=== PATIENT | female | born 1950 | race Caucasian/White ===

== ENCOUNTER 2022-03-06 10:00 | Inpatient (IN) ==
[~2022-03-06 10:00] MED LIST: Acetaminophen IV 1 GM/100ML 1,000 MG/100 ML BAG IV ONE; Buffered Lidocaine 1% SYRIN 1 ml INTRADERM ONE; Dexamethasone IV 4 MG/ML VIAL 1 ml VIAL ONE; Lactated Ringers 1000 ml BAG 1,000 ML IV SCH; Lidocaine 2% PF 5 ML VIAL ONE; Midazolam 2 mg/2 ml VIAL 1 mg/ml 2 ml VIAL (2 mg) ONE; Ondansetron 4 mg VIAL 2 MG/ML 2 ml VIAL ONE; Phenylephrine IV 10 MG/ML 1 ml VIAL ONE; fentaNYL 100 mcg/2 ml 50 MCG/ML VIAL ONE
[2022-03-06] MEDS ORDERED: Clindamycin 900 MG/D5W BAG 900 MG/50 ML BAG IVPB ONE (12:06)
[2022-03-06] MEDS ORDERED: ROPIVACAINE 5 MG/ML 30 ML BTL (0.5%) ONE ×2 (13:04→15:03)
[2022-03-06] MEDS ORDERED: Midazolam 2 mg/2 ml VIAL 1 mg/ml 2 ml VIAL (2 mg) ONE (13:04)
[2022-03-06] MEDS ORDERED: Rocuronium 50 mg VIAL 10 mg/ml 5 ml VIAL (50 mg) ONE (14:24)
[2022-03-06] MEDS ORDERED: Propofol 10 MG/ML 20 ML BTL ONE (14:24)
[2022-03-06] MEDS ORDERED: Naloxone 0.4 mg VIAL 0.4 mg/ml 1 ml VIAL IV PRN (14:26)
[2022-03-06] MEDS ORDERED: fentaNYL 100 mcg/2 ml 50 MCG/ML VIAL ONE (14:51)
[2022-03-06] MEDS ORDERED: Ondansetron ODT 4 mg TAB 4 MG TAB PO PRN (15:21)
[2022-03-06] MEDS ORDERED: Lactulose 30 ml UDC PO PRN (15:21)
[2022-03-06] MEDS ORDERED: Magnesium Hydroxide LIQ 30 ML UDC PO PRN (15:21)
[2022-03-06] MEDS ORDERED: HYDROmorphone 1 MG/1 ML SYRINGE IV SLOW PU PRN (15:28)
[2022-03-06] MEDS ORDERED: fentaNYL 250 mcg/5 ml 50 MCG/ML 5 ml VIAL (250 MCG) ONE (16:30)
[2022-03-06] MEDS ORDERED: HYDROmorphone 1 MG/1 ML SYRINGE ONE (17:20)
[2022-03-06] MEDS: HYDROmorphone 1 MG/1 ML SYRINGE IV PRN ×5 (17:24→18:18)
[2022-03-06] MEDS ORDERED: Ondansetron 4 mg VIAL 2 MG/ML 2 ml VIAL ONE (18:52)
[2022-03-06] MEDS ORDERED: Albuterol HFA INHALER 8 gm MDI INH PRN (18:59)
[2022-03-06] MEDS ORDERED: Warfarin per PHARMACY **NOTE FOLLOW UP SCH (20:00)
[2022-03-06] MEDS: Magnesium Hydroxide LIQ 30 ML UDC PO SCH (22:12)
[2022-03-06] MEDS: Lactated Ringers 1000 ml BAG 1,000 ML IV SCH (23:31)
[2022-03-06] MEDS: Clindamycin 600 MG/D5W BAG 600 MG/50 ML BAG IV SCH (23:31)
[2022-03-07] MEDS: Ondansetron 4 mg VIAL 2 MG/ML 2 ml VIAL IV PRN ×2 (00:16→07:38)
[2022-03-07] MEDS: Clindamycin 600 MG/D5W BAG 600 MG/50 ML BAG IV SCH ×2 (06:11→13:05)
[2022-03-07 08:02] LABS: Hematocrit 35 % (35-47); Hemoglobin 11.2 g/dL (12.0-16.0); Platelet Count 255 10^3/uL (150-450)
[2022-03-07 08:13] LABS: INR 1.04 (0.89-1.11)
[2022-03-07 08:53] LABS: Calcium 9.5 mg/dL (8.6-10.3); Potassium 3.7 mmol/L (3.5-5.0); eGFR CKD-EPI 69.7 (>60)
[2022-03-07] MEDS ORDERED: Enoxaparin 40 MG/0.4 ML SYR SUBCUT SCH ×2 (09:00)
[2022-03-07] MEDS ORDERED: Vitamin THERAPEUTIC TAB PO SCH (09:00)
[2022-03-07] MEDS: Magnesium Hydroxide LIQ 30 ML UDC PO SCH ×2 (09:04→10:29)
[2022-03-07] MEDS: Lactated Ringers 1000 ml BAG 1,000 ML IV SCH (10:16)
[2022-03-07] MEDS ORDERED: Scopolamine 1 mg/72hr PATCH TRANSDERM SCH (11:00)
[2022-03-07] MEDS ORDERED: NS 0.9% 500 ML BAG IV ONE (11:00)
[2022-03-07 11:06] VITALS: BP 128/58
[2022-03-08] MEDS ORDERED: Warfarin DAILY REMINDER **NOTE FOLLOW UP SCH (17:00)
== END 2022-03-07 15:40 | disposition home or self-care (01) | DRG 470 ==
LOC: INTOOBSV 10:00 → AA 10:00 → SSU 18:47
PROVIDERS: ADMIT Orthopaedic Surgery Adult Reconstructive Orthopaedic Surgery; ATTEND Orthopaedic Surgery Adult Reconstructive Orthopaedic Surgery